=== PATIENT | male | born 1940 | race African-American/Black ===

== ENCOUNTER 2017-09-23 19:37 | Inpatient (IN) | payer OTHER, MEDICARE ==
[~2017-09-23] VITALS: Ht 175.3 cm; Wt 90.7 kg
[2017-09-23 23:01] LABS: BASOPHILS % 0.6 % (0.0-2.0); EOSINOPHILS % 0.2 % (0.0-5.0); HEMATOCRIT. 40.3 % (42.0-52.0); HEMOGLOBIN. 13.2 g/dL (14.0-18.0); LYMPHOCYTES % 16.3 % (20.0-50.0); MEAN CORPUSCULAR HEMOGLOBIN 28.6 pg (28.0-32.0); MEAN CORPUSCULAR VOLUME 87.2 fL (80.0-94.0); MEAN PLATELET VOLUME 7.7 fl (7.4-10.4); MONOCYTES % 6.1 % (2.0-8.0); NEUTROPHILS % 76.8 % (40.0-76.0); PLATELET 383 x1000/uL (130-400); RED BLOOD CELL COUNT 4.62 mill/uL (4.7-6.1); RED CELL DISTRIBUTION WIDTH 13.6 % (11.6-14.6)
[2017-09-23 23:05] LABS: INR 1.2; PROTHROMBIN TIME 12.3 sec (9.4-11.6)
[2017-09-23 23:07] LABS: CHLORIDE 107 mEq/L (98-107)
[2017-09-23 23:14] LABS: TROPONIN I < 0.02 ng/mL (0.00-0.04)
[2017-09-24 00:06] LABS: CLARITY URINE CLEAR (CLEAR); COLOR URINE YELLOW (YELLOW); KETONES URINE NEGATIVE (NEGATIVE); LEUKOCYTE ESTERASE URINE NEGATIVE (NEGATIVE); NITRITE URINE NEGATIVE (NEGATIVE); OCCULT BLOOD URINE NEGATIVE (NEGATIVE); PROTEIN URINE NEGATIVE (NEGATIVE); SPECIFIC GRAVITY URINE 1.011 (1.005-1.030); UROBILINOGEN URINE 0.2 E.U./dL (0.2-1.0)
[2017-09-24] MEDS ORDERED: CLONIDINE 0.1MG TABLET PO PRN (04:45)
[2017-09-24] MEDS ORDERED: ACETAMINOPHEN 325MG TABLET PO PRN (04:45)
[2017-09-24] MEDS ORDERED: ONDANSETRON HCL 4MG/2ML VIAL IV PRN (04:45)
[2017-09-24] MEDS ORDERED: MAGNESIUM/ALUMINUM HYDROXIDE/SIMETHICONE 30ML UDC PO PRN (04:45)
[2017-09-24] MEDS ORDERED: HYDROCODONE/ACETAMINOPHEN 5/325MG TABLET PO PRN (04:45)
[2017-09-24] MEDS ORDERED: GUAIFENESIN 200MG/10ML SUGAR FREE UDC PO PRN (04:45)
[2017-09-24 06:00] VITALS: BP 133/87
[2017-09-24 08:15] VITALS: BP 138/71
[2017-09-24] MEDS: ENOXAPARIN 40MG/0.4ML SYR SUBCUT SCH (09:00)
[2017-09-24] MEDS ORDERED: AMLODIPINE 10MG TABLET PO SCH (09:00)
[2017-09-24] MEDS ORDERED: DOCUSATE SODIUM 100MG CAPSULE PO PRN (09:00)
[2017-09-24] MEDS: ASPIRIN 81MG EC TABLET PO SCH (09:00)
[2017-09-24 09:58] VITALS: BP 132/65
[2017-09-24] MEDS ORDERED: DABI150C PO (10:25)
[2017-09-24] MEDS ORDERED: AMLO2.5T45 PO (10:28)
[2017-09-24] MEDS ORDERED: ALLO300T2 PO (10:28)
[2017-09-24] MEDS ORDERED: ARIP2TAB3 PO (10:28)
[2017-09-24] MEDS ORDERED: METO25TA6 PO (10:28)
[2017-09-24] MEDS ORDERED: FLUT9.9S NS (10:31)
[2017-09-24] MEDS ORDERED: OMEP20CA10 PO (10:31)
[2017-09-24] MEDS ORDERED: TERA5CAP4 PO (10:31)
[2017-09-24] MEDS ORDERED: MULT-1146 PO (10:31)
[2017-09-24] MEDS ORDERED: FINA5TAB11 PO (10:31)
[2017-09-24 11:56] LABS: CREATINE KINASE 70 IU/L (39-308); CREATINE KINASE MB FRACTION 1.5 ng/mL (0.5-3.6); TROPONIN I < 0.02 ng/mL (0.00-0.04)
[2017-09-24] MEDS: ALLOPURINOL 300 MG TABLET PO SCH (12:22)
[2017-09-24] MEDS: OMEPRAZOLE 20MG CAPSULE EXTENDED RELEASE PO SCH (12:22)
[2017-09-24] MEDS: FINASTERIDE 5MG TABLET PO SCH (12:23)
[2017-09-24] MEDS: TERAZOSIN HCL 5MG CAPSULE PO SCH (12:23)
[2017-09-24] MEDS: SODIUM CHLORIDE 0.9% 1,000 ML IV SCH (12:25)
[2017-09-24 12:33] VITALS: BP 126/84
[2017-09-24] MEDS: METOPROLOL TARTRATE 25MG TABLET PO SCH ×2 (13:31→21:01)
[2017-09-24] MEDS: AMLODIPINE 2.5MG TABLET PO SCH (13:32)
[2017-09-24] MEDS ORDERED: DABI75CA3 PO (13:34)
[2017-09-24 16:00] VITALS: BP 111/75
[2017-09-24 16:42] LABS: CREATINE KINASE 68 IU/L (39-308); CREATINE KINASE MB FRACTION 1.2 ng/mL (0.5-3.6); TROPONIN I < 0.02 ng/mL (0.00-0.04)
[2017-09-24 20:00] VITALS: BP 132/74
[2017-09-24] MEDS ORDERED: METOPROLOL TARTRATE 25MG TABLET PO SCH (21:00)
[2017-09-25] VITALS: BP 112/69
[2017-09-25] MEDS: SODIUM CHLORIDE 0.9% 1,000 ML IV SCH (02:21)
[2017-09-25 04:00] VITALS: BP 128/68
[2017-09-25] MEDS: OMEPRAZOLE 20MG CAPSULE EXTENDED RELEASE PO SCH (06:59)
[2017-09-25 08:00] VITALS: BP 130/84
[2017-09-25] MEDS: ENOXAPARIN 40MG/0.4ML SYR SUBCUT SCH (09:00)
[2017-09-25] MEDS: ASPIRIN 81MG EC TABLET PO SCH (09:00)
[2017-09-25] MEDS: TERAZOSIN HCL 5MG CAPSULE PO SCH (09:03)
[2017-09-25] MEDS: METOPROLOL TARTRATE 25MG TABLET PO SCH ×2 (09:04→21:28)
[2017-09-25] MEDS: AMLODIPINE 2.5MG TABLET PO SCH (09:04)
[2017-09-25] MEDS: ALLOPURINOL 300 MG TABLET PO SCH (09:05)
[2017-09-25] MEDS: FINASTERIDE 5MG TABLET PO SCH (09:05)
[2017-09-25 09:14] LABS: BASOPHILS % 0.4 % (0.0-2.0); EOSINOPHILS % 0.5 % (0.0-5.0); HEMATOCRIT. 37.7 % (42.0-52.0); HEMOGLOBIN. 12.4 g/dL (14.0-18.0); MEAN CORPUSCULAR HEMOGLOBIN 28.6 pg (28.0-32.0); MEAN CORPUSCULAR VOLUME 87.1 fL (80.0-94.0); MONOCYTES % 6.6 % (2.0-8.0); NEUTROPHILS % 69.5 % (40.0-76.0); PLATELET 371 x1000/uL (130-400); RED BLOOD CELL COUNT 4.33 mill/uL (4.7-6.1); RED CELL DISTRIBUTION WIDTH 13.9 % (11.6-14.6)
[2017-09-25 09:42] LABS: CHLORIDE 111 mEq/L (98-107); T4 FREE 1.21 ng/dL (0.76-1.46)
[2017-09-25 12:00] VITALS: BP 117/81
[2017-09-25] MEDS ORDERED: LOSARTAN POTASSIUM 25 MG TABLET PO SCH (12:15)
[2017-09-25 12:58] LABS: T4 FREE 1.21 ng/dL (0.76-1.46)
[2017-09-25 14:30] VITALS: BP_SYST 114; BP_SYST 123; BP_SYST 125; BP_DIAS 72; BP_DIAS 80; BP_DIAS 87
[2017-09-25 15:33] LABS: CREATINE KINASE 90 IU/L (39-308); CREATINE KINASE MB FRACTION 1.4 ng/mL (0.5-3.6); TROPONIN I < 0.02 ng/mL (0.00-0.04)
[2017-09-25 16:00] VITALS: BP 137/86
[2017-09-25] MEDS ORDERED: RIVAROXABAN 20 MG TABLET PO SCH (17:00)
[2017-09-25] MEDS ORDERED: NON FORMULARY PATIENT HOME MED EA XX SCH (17:15)
== END 2017-09-25 22:07 | disposition short-term general hospital (02) | DRG 312 ==
LOC: ER 19:37 → EDBEDREQTM 09-24 00:23 → EDBEDREQ 09-24 00:23 → EDBEDREQDT 09-24 00:23 → 5WST 09-24 01:15 → EDBEDREQ 09-24 01:19 → EDBEDREQTM 09-24 01:19 → ENRESERV 09-24 04:19 → SUPCPDRO 09-24 04:41
PROVIDERS: ADMIT Hospitalist; ATTEND Hospitalist
DX: R55 Syncope and collapse (principal); J44.9 Chronic obstructive pulmonary disease, unspecified; I48.91 Unspecified atrial fibrillation; W00.0XXA Fall on same level due to ice and snow, initial encounter; E78.00 Pure hypercholesterolemia, unspecified; E78.5 Hyperlipidemia, unspecified; I10 Essential (primary) hypertension; I25.10 Atherosclerotic heart disease of native coronary artery without angina pectoris; Z79.01 Long term (current) use of anticoagulants; Z86.73 Personal history of transient ischemic attack (TIA), and cerebral infarction without residual deficits; Z95.5 Presence of coronary angioplasty implant and graft; Z87.891 Personal history of nicotine dependence; Y93.89 Activity, other specified; Y92.89 Other specified places as the place of occurrence of the external cause; Y99.8 Other external cause status
CPT/HCPCS: 36415; 70450; 71045; 80053; 80061; 81003; 82550; 82553; 83036; 83735; 83880; 84439; 84443; 84484; 85025; 85610; 93005; 93306; 93880; 99285; J7030

== ENCOUNTER 2018-06-09 23:41 | Inpatient (IN) | payer MEDICARE, OTHER ==
[~2018-06-09] VITALS: Ht 185.4 cm; Wt 85.7 kg
[~2018-06-09 23:41] MED LIST: ALLO300T2 PO; AMLO2.5T45 PO; DABI75CA3 PO; FINA5TAB11 PO; FLUT9.9S NS; METO25TA6 PO; MULT-1146 PO; OMEP20CA10 PO; TERA5CAP4 PO
[2018-06-09] MEDS ORDERED: LEVETIRACETAM 500MG PREMIX 100 ML IV ONE (23:45)
[2018-06-09] MEDS ORDERED: LORAZEPAM 2MG/ML CPJ IV ONE (23:45)
[2018-06-09] MEDS ORDERED: LORAZEPAM 2MG/ML CPJ ONE (23:58)
[2018-06-10] VITALS (51 sets, daily range): BP systolic 107–185; BP diastolic 48–96
[2018-06-10] MEDS ORDERED: LORAZEPAM 2MG/ML CPJ ONE
[2018-06-10] MEDS ORDERED: PROPOFOL 10MG/ML 100ML 100 ML IV ONE
[2018-06-10] MEDS ORDERED: LORAZEPAM 2MG/ML CPJ IV ONE ×2
[2018-06-10 00:02] LABS: BASOPHILS % 1.1 % (0.0-2.0); EOSINOPHILS % 2.2 % (0.0-5.0); HEMATOCRIT. 42.1 % (42.0-52.0); HEMOGLOBIN. 13.2 g/dL (14.0-18.0); MEAN CORPUSCULAR HEMOGLOBIN 27.5 pg (28.0-32.0); MEAN CORPUSCULAR VOLUME 87.7 fL (80.0-94.0); MEAN PLATELET VOLUME 9.8 fl (7.4-10.4); MONOCYTES % 7.9 % (2.0-8.0); NEUTROPHILS % 26.8 % (40.0-76.0); PLATELET 251 x1000/uL (130-400)
[2018-06-10 00:10] LABS: INR 1.2; PROTHROMBIN TIME 11.6 sec (9.1-11.1)
[2018-06-10 00:15] LABS: CHLORIDE 108 mEq/L (98-107)
[2018-06-10] MEDS ORDERED: PIPERACILLIN/TAZ 3.375G PREMIX 50 ML IV ONE (00:45)
[2018-06-10] MEDS ORDERED: VANCOMYCIN 1 G PREMIX 200 ML IV ONE (00:45)
[2018-06-10 01:05] LABS: BG BASE EXCESS -13.8 mmol/L (-2.0-2.0); BG CARBOXYHEMOGLOBIN 0.5 % (0.5-1.5); BG FRACTION INSPIRED OXYGEN 100; BG HCO3 ACT 13.6 mmol/L (22.0-26.0); BG METHEMOGLOBIN 0.5 % (0.0-1.5); BG PH 7.184 (7.350-7.450); BG PO2 109.5 mmHg (75.0-100.0); BG SAMPLE SITE RIGHT BRACHIAL; BG TIDAL VOLUME(mL) 500 mL; BG TOTAL HEMOGLOBIN 13.4 g/dL (12.0-18.0); BG VENT MODE VENT - A/C; BG VENT RATE 14 set
[2018-06-10 01:17] LABS: CLARITY URINE CLEAR (CLEAR); COLOR URINE YELLOW (YELLOW); KETONES URINE NEGATIVE (NEGATIVE); LEUKOCYTE ESTERASE URINE NEGATIVE (NEGATIVE); NITRITE URINE NEGATIVE (NEGATIVE); OCCULT BLOOD URINE TRACE (NEGATIVE); PROTEIN URINE 1+ (NEGATIVE); SPECIFIC GRAVITY URINE 1.012 (1.005-1.030)
[2018-06-10] MEDS ORDERED: SODIUM BICARBONATE 8.4% 1 MEQ/ML 50ML SYR IV NR (01:38)
[2018-06-10] MEDS ORDERED: SODIUM CHLORIDE 0.9% 1,000 ML IV SCH (02:20)
[2018-06-10] MEDS ORDERED: LORAZEPAM 2MG/ML CPJ IV PRN (05:30)
[2018-06-10] MEDS ORDERED: PIPERACILLIN/TAZ 3.375G PREMIX 50 ML IV SCH (05:30)
[2018-06-10] MEDS ORDERED: ONDANSETRON HCL 4MG/2ML INJ IV PRN (05:30)
[2018-06-10 06:18] LABS: BG BASE EXCESS -1.6 mmol/L (-2.0-2.0); BG CARBOXYHEMOGLOBIN 0.7 % (0.5-1.5); BG DEOXYHEMOGLOBIN 1.9 % (0.0-5.0); BG FRACTION INSPIRED OXYGEN 80; BG HCO3 ACT 22.5 mmol/L (22.0-26.0); BG METHEMOGLOBIN 0.4 % (0.0-1.5); BG OXYGEN SATURATION 98.1 % (92.0-98.5); BG PCO2 36.2 mmHg (35.0-45.0); BG PH 7.412 (7.350-7.450); BG PO2 106.6 mmHg (75.0-100.0); BG SAMPLE SITE RIGHT BRACHIAL; BG TIDAL VOLUME(mL) 500 mL; BG TOTAL HEMOGLOBIN 13.1 g/dL (12.0-18.0); BG VENT MODE VENT - A/C; BG VENT RATE 14 set
[2018-06-10] MEDS ORDERED: HYDRALAZINE 20MG/ML VIAL IV PRN (06:30)
[2018-06-10] MEDS: DEXT 5%/0.45% NACL KCL 20MEQ/L 1,000 ML IV SCH ×2 (07:17→18:45)
[2018-06-10] MEDS: PROPOFOL 10MG/ML 100ML 100 ML IV PRN ×2 (07:18→11:44)
[2018-06-10] MEDS ORDERED: PHENYTOIN SODIUM 1000MG in SODIUM CHLORIDE 0.9% 100ML IV NR (08:00)
[2018-06-10] MEDS: LEVETIRACETAM 1,000 MG in SODIUM CHLORIDE 0.9% 100 ML IV SCH ×2 (09:47→21:08)
[2018-06-10] MEDS: PANTOPRAZOLE SODIUM 40 MG/VIAL IV SCH (09:47)
[2018-06-10] MEDS ORDERED: IPRATROPIUM/ALBUTEROL 0.5-3(2.5)MG/3ML NEB HHN PRN (10:30)
[2018-06-10] MEDS ORDERED: CLONIDINE 0.1MG TABLET PO PRN (10:30)
[2018-06-10] MEDS ORDERED: LOSARTAN POTASSIUM 50 MG TABLET PO SCH (10:30)
[2018-06-10] MEDS: PIPERACILLIN/TAZ 3.375G PREMIX 50 ML IV SCH ×3 (10:31→21:08)
[2018-06-10] MEDS ORDERED: ENOXAPARIN 40MG/0.4ML SYR SUBCUT SCH (11:30)
[2018-06-10] MEDS: FUROSEMIDE 40MG/4ML VIAL IVP SCH ×2 (11:32→17:00)
[2018-06-10] MEDS: AMLODIPINE 5MG TABLET PO SCH ×2 (11:32→21:09)
[2018-06-10 11:44] LABS: BASOPHILS % 0.2 % (0.0-2.0); EOSINOPHILS % 0.1 % (0.0-5.0); HEMATOCRIT. 37.1 % (42.0-52.0); HEMOGLOBIN. 11.8 g/dL (14.0-18.0); LYMPHOCYTES % 15.4 % (20.0-50.0); MEAN CORPUSCULAR HEMOGLOBIN 27.6 pg (28.0-32.0); MEAN CORPUSCULAR VOLUME 86.4 fL (80.0-94.0); MEAN PLATELET VOLUME 9.8 fl (7.4-10.4); MONOCYTES % 7.2 % (2.0-8.0); NEUTROPHILS % 77.1 % (40.0-76.0); PLATELET 232 x1000/uL (130-400); RED CELL DISTRIBUTION WIDTH 13.4 % (11.6-14.6)
[2018-06-10 11:56] LABS: AMMONIA 42 uMol/L (<32)
[2018-06-10] MEDS ORDERED: IPRATROPIUM/ALBUTEROL 0.5-3(2.5)MG/3ML NEB HHN SCH (12:00)
[2018-06-10 12:14] LABS: CHLORIDE 108 mEq/L (98-107)
[2018-06-10] MEDS: VANCOMYCIN 1250MG in DEXTROSE 5% WATER 250ML IV SCH (12:41)
[2018-06-10] MEDS ORDERED: POTASSIUM CHLORIDE 20MEQ/PACKET PO NR (13:00)
[2018-06-10] MEDS ORDERED: PROPOFOL 10MG/ML 100ML 100 ML IV PRN (13:10)
[2018-06-10] MEDS ORDERED: LACTULOSE 20G/30ML UDC PO NR (13:15)
[2018-06-10] MEDS ORDERED: SODIUM CHLORIDE 0.9% 10ML VIAL ONE (13:54)
[2018-06-10] MEDS ORDERED: VECURONIUM BROMIDE 10 MG/VIAL IV ONE ×2 (13:54)
[2018-06-10] MEDS ORDERED: FOLIC ACID 1 MG in SODIUM CHLORIDE 0.9% 500 ML IV NR (15:00)
[2018-06-10] MEDS ORDERED: DEXTROSE 50% WATER 50ML SYRINGE IV PRN (15:15)
[2018-06-10] MEDS ORDERED: BISO10TA11 MT (16:44)
[2018-06-10] MEDS ORDERED: LIP40 MT (16:44)
[2018-06-10] MEDS ORDERED: ASPI-1159 MT (16:44)
[2018-06-10 17:12] LABS: PHOSPHORUS 2.9 mg/dL (2.5-4.9)
[2018-06-10] MEDS ORDERED: BLOOD SUGAR DIAGNOSTIC STRIP TEST SCH (17:50)
[2018-06-10] MEDS ORDERED: INSULIN LISPRO 100 UNITS/ML SUBCUT SCH (18:20)
[2018-06-10] MEDS: IPRATROPIUM/ALBUTEROL 0.5-3(2.5)MG/3ML NEB HHN SCH (20:16)
[2018-06-10] MEDS: BUDESONIDE 0.5MG/2ML NEB HHN SCH (20:16)
[2018-06-10] MEDS ORDERED: PHENYTOIN SODIUM EXTENDED 100MG CAPSULE PO SCH (21:00)
[2018-06-10] MEDS: ENOXAPARIN 100MG/ML SYR SUBCUT SCH (21:10)
[2018-06-10] MEDS: INSULIN LISPRO 100 UNITS/ML SUBCUT SCH (23:15)
[2018-06-10] MEDS: BLOOD SUGAR DIAGNOSTIC STRIP TEST SCH (23:17)
[2018-06-10 23:33] LABS: CREATINE KINASE MB FRACTION 3.1 ng/mL (0.5-3.6)
[2018-06-11] VITALS (62 sets, daily range): BP systolic 102–171; BP diastolic 49–111
[2018-06-11] MEDS: IPRATROPIUM/ALBUTEROL 0.5-3(2.5)MG/3ML NEB HHN SCH ×3 (01:20→15:18)
[2018-06-11] MEDS: PIPERACILLIN/TAZ 3.375G PREMIX 50 ML IV SCH ×3 (02:23→14:15)
[2018-06-11] MEDS: DEXT 5%/0.45% NACL KCL 20MEQ/L 1,000 ML IV SCH (04:50)
[2018-06-11] MEDS: VANCOMYCIN 1250MG in DEXTROSE 5% WATER 250ML IV SCH (05:01)
[2018-06-11 05:13] LABS: BASOPHILS % 0.3 % (0.0-2.0); EOSINOPHILS % 0.3 % (0.0-5.0); HEMATOCRIT. 39.1 % (42.0-52.0); HEMOGLOBIN. 12.7 g/dL (14.0-18.0); MEAN CORPUSCULAR HEMOGLOBIN 27.8 pg (28.0-32.0); MEAN CORPUSCULAR VOLUME 85.7 fL (80.0-94.0); MONOCYTES % 9.6 % (2.0-8.0); NEUTROPHILS % 65.8 % (40.0-76.0); PLATELET 226 x1000/uL (130-400); RED BLOOD CELL COUNT 4.56 mill/uL (4.7-6.1); RED CELL DISTRIBUTION WIDTH 13.6 % (11.6-14.6)
[2018-06-11 05:18] LABS: CHLORIDE 107 mEq/L (98-107)
[2018-06-11] MEDS: INSULIN LISPRO 100 UNITS/ML SUBCUT SCH ×3 (05:19→17:26)
[2018-06-11] MEDS: BLOOD SUGAR DIAGNOSTIC STRIP TEST SCH ×3 (05:19→17:26)
[2018-06-11 05:26] LABS: AMMONIA 54 uMol/L (<32)
[2018-06-11 05:27] LABS: CREATINE KINASE 972 IU/L (39-308); CREATINE KINASE MB FRACTION 1.9 ng/mL (0.5-3.6)
[2018-06-11 07:36] LABS: BG BASE EXCESS -0.2 mmol/L (-2.0-2.0); BG CARBOXYHEMOGLOBIN 0.6 % (0.5-1.5); BG DEOXYHEMOGLOBIN 0.7 % (0.0-5.0); BG HCO3 ACT 22.4 mmol/L (22.0-26.0); BG METHEMOGLOBIN 0.3 % (0.0-1.5); BG OXYGEN SATURATION 99.3 % (92.0-98.5); BG OXYHEMOGLOBIN 98.4 % (94.0-97.0); BG PCO2 30.8 mmHg (35.0-45.0); BG PO2 162.5 mmHg (75.0-100.0); BG SAMPLE SITE RIGHT BRACHIAL; BG TIDAL VOLUME(mL) 500 mL; BG TOTAL HEMOGLOBIN 13.2 g/dL (12.0-18.0); BG VENT MODE VENT - A/C; BG VENT RATE 14 set
[2018-06-11] MEDS ORDERED: LIDOCAINE HCL 1% 20ML VIAL (Pyxis) INJ ONE (07:56)
[2018-06-11] MEDS ORDERED: SODIUM BICARBONATE 4% (2.4MEQ) 5ML VIAL IV ONE (07:56)
[2018-06-11] MEDS: BUDESONIDE 0.5MG/2ML NEB HHN SCH (08:37)
[2018-06-11] MEDS ORDERED: THIAMINE HCL 100MG TABLET PO SCH (09:00)
[2018-06-11] MEDS ORDERED: MULTIVITAMINS,THER W-MINERALS TABLET PO SCH (09:00)
[2018-06-11] MEDS ORDERED: CARVEDILOL 3.125 MG TABLET PO SCH (09:00)
[2018-06-11] MEDS ORDERED: POTASSIUM CHLORIDE 20MEQ TABLET SR PO SCH (10:00)
[2018-06-11] MEDS ORDERED: LACTULOSE 20G/30ML UDC PO PRN (10:00)
[2018-06-11] MEDS: FUROSEMIDE 40MG/4ML VIAL IVP SCH ×2 (10:03→17:26)
[2018-06-11] MEDS: LEVETIRACETAM 1,000 MG in SODIUM CHLORIDE 0.9% 100 ML IV SCH (10:03)
[2018-06-11] MEDS: PANTOPRAZOLE SODIUM 40 MG/VIAL IV SCH (10:03)
[2018-06-11] MEDS: ENOXAPARIN 100MG/ML SYR SUBCUT SCH (10:04)
[2018-06-11] MEDS: AMLODIPINE 5MG TABLET PO SCH (10:09)
[2018-06-11] MEDS ORDERED: POTASSIUM CHLORIDE 20MEQ/PACKET PO NR (10:30)
[2018-06-11] MEDS: PROPOFOL 10MG/ML 100ML 100 ML IV PRN ×2 (10:40→18:40)
[2018-06-11] MEDS ORDERED: LACTULOSE 20G/30ML UDC PO SCH (14:00)
[2018-06-11 18:06] LABS: PHOSPHORUS 4.3 mg/dL (2.5-4.9)
== END 2018-06-11 20:55 | disposition short-term general hospital (02) | DRG 871 ==
LOC: ER 23:41 → EDBD 06-10 02:21 → CVICU 06-10 02:21 → EDBEDREQSVC 06-10 02:25 → EDBEDREQ 06-10 02:25 → EDBEDREQTM 06-10 02:25 → ENRESERV 06-10 03:27
PROVIDERS: ADMIT Internal Medicine; ATTEND Internal Medicine
PROC: 0BH17EZ Insertion of Endotracheal Airway into Trachea, Via Natural or Artificial Opening (ICD-10-PCS; principal; 2018-06-10)
PROC: 0CJS8ZZ Inspection of Larynx, Via Natural or Artificial Opening Endoscopic (ICD-10-PCS; 2018-06-10)
PROC: 5A1945Z Respiratory Ventilation, 24-96 Consecutive Hours (ICD-10-PCS; 2018-06-10)
PROC: 02HV33Z Insertion of Infusion Device into Superior Vena Cava, Percutaneous Approach (ICD-10-PCS; 2018-06-11)
PROC: B548ZZA Ultrasonography of Superior Vena Cava, Guidance (ICD-10-PCS; 2018-06-11)
DX: A41.9 Sepsis, unspecified organism (principal); G93.41 Metabolic encephalopathy; J96.00 Acute respiratory failure, unspecified whether with hypoxia or hypercapnia; I50.23 Acute on chronic systolic (congestive) heart failure; I42.9 Cardiomyopathy, unspecified; I69.351 Hemiplegia and hemiparesis following cerebral infarction affecting right dominant side; E78.00 Pure hypercholesterolemia, unspecified; E87.8 Other disorders of electrolyte and fluid balance, not elsewhere classified; G40.909 Epilepsy, unspecified, not intractable, without status epilepticus; E78.5 Hyperlipidemia, unspecified; E11.9 Type 2 diabetes mellitus without complications; E87.6 Hypokalemia; G47.33 Obstructive sleep apnea (adult) (pediatric); I11.0 Hypertensive heart disease with heart failure; I25.10 Atherosclerotic heart disease of native coronary artery without angina pectoris; I48.2 Chronic atrial fibrillation; J44.9 Chronic obstructive pulmonary disease, unspecified; N40.0 Benign prostatic hyperplasia without lower urinary tract symptoms; Z78.1 Physical restraint status; Z95.5 Presence of coronary angioplasty implant and graft; Z79.82 Long term (current) use of aspirin; Z79.899 Other long term (current) drug therapy
CPT/HCPCS: 31500; 36415; 36569; 36600; 43760; 51702; 70551; 71045; 74018; 76937; 80048; 80061; 80185; 82140; 82375; 82550; 82553; 82805; 82962; 83605; 83721; 83735; 83880; 84100; 84443; 84478; 84484; 87070; 87804; 93005; 93306; 93970; 94002; 94003; 94640; 96365; 96375; 99291; A4216; C1725; C1769; C9113; J0360; J1165; J1650; J1815; J1940; J1953; J2060; J2543; J2704; J3370; J3490; J7030; J7040; J7050; J7060; J7620; J7626

== ENCOUNTER 2020-02-24 01:19 | Inpatient (IN) | payer MEDICARE, OTHER ==
[~2020-02-24] VITALS: Ht 175.3 cm; Wt 113.4 kg
[2020-02-24] VITALS (28 sets, daily range): BP systolic 80–122; BP diastolic 35–62
[~2020-02-24 01:19] MED LIST changes: -AMLO2.5T45 PO; +ASPI-1497 MT; +BISO10TA11 MT; +LIP40 MT; -MULT-1146 PO; -OMEP20CA10 PO; +OMEP20CA14 PO
[2020-02-24] MEDS ORDERED: NITROGLYCERIN 0.1MG/HR PATCH TOP ONE (01:30)
[2020-02-24] MEDS ORDERED: SODIUM CHLORIDE 0.45% 1,000 ML IV ONE (01:59)
[2020-02-24 02:00] LABS: CHLORIDE 90 mEq/L (98-107)
[2020-02-24] MEDS ORDERED: MAGNESIUM 2 G PREMIX 50 ML IV ONE (02:00)
[2020-02-24] MEDS ORDERED: AZITHROMYCIN 500 MG in DEXT 5% WATER 250 ML IV ONE (02:00)
[2020-02-24] MEDS ORDERED: CEFTRIAXONE 1 G PREMIX 50 ML IV ONE (02:00)
[2020-02-24 02:04] LABS: BG BASE EXCESS 5.9 mmol/L (-2.0-2.0); BG CARBOXYHEMOGLOBIN 0.8 % (0.5-1.5); BG DEOXYHEMOGLOBIN 1.3 % (0.0-5.0); BG FRACTION INSPIRED OXYGEN 100; BG HCO3 ACT 29.5 mmol/L (22.0-26.0); BG METHEMOGLOBIN 0.2 % (0.0-1.5); BG OXYGEN SATURATION 98.7 % (92.0-98.5); BG OXYHEMOGLOBIN 97.7 % (94.0-97.0); BG PCO2 39.1 mmHg (35.0-45.0); BG PH 7.495 (7.350-7.450); BG PO2 131.4 mmHg (75.0-100.0); BG SAMPLE SITE RIGHT RADIAL; BG TOTAL HEMOGLOBIN 15.4 g/dL (12.0-18.0); BG VENT MODE MASK - NRB
[2020-02-24 02:16] LABS: BASOPHILS % 0.1 % (0.0-2.0); EOSINOPHILS % 0.1 % (0.0-5.0); HEMOGLOBIN. 15.2 g/dL (14.0-18.0); LYMPHOCYTES % 17.5 % (20.0-50.0); MEAN CORPUSCULAR HEMOGLOBIN 28.9 pg (28.0-32.0); MEAN CORPUSCULAR VOLUME 87.5 fL (80.0-94.0); MONOCYTES % 10.2 % (2.0-8.0); NEUTROPHILS % 72.1 % (40.0-76.0); PLATELET 259 x1000/uL (130-400); RED BLOOD CELL COUNT 5.27 mill/uL (4.7-6.1); RED CELL DISTRIBUTION WIDTH 13.5 % (11.6-14.6)
[2020-02-24] MEDS ORDERED: IPRATROPIUM BROMIDE (0.02%) 0.5MG/2.5ML NEB HHN STA (05:53)
[2020-02-24] MEDS ORDERED: ALBUTEROL (0.083%) 2.5MG/3ML NEB HHN STA ×2 (05:53→07:34)
[2020-02-24] MEDS ORDERED: MAGNESIUM/ALUMINUM HYDROXIDE/SIMETHICONE 30ML UDC PO PRN (06:30)
[2020-02-24] MEDS ORDERED: NITROGLYCERIN 0.4MG TABLET SL SL PRN (06:30)
[2020-02-24] MEDS ORDERED: ACETAMINOPHEN 325MG TABLET PO PRN (06:30)
[2020-02-24 06:47] LABS: T4 FREE 1.2 ng/dL (0.76-1.46)
[2020-02-24 06:59] LABS: FOLIC ACID (FOLATE) SERUM >20 ng/mL ng/mL (>5.38)
[2020-02-24] MEDS ORDERED: KCL 20MEQ/100ML PREMIX 100 ML IV SCH (07:00)
[2020-02-24] MEDS ORDERED: AZITHROMYCIN 500 MG in DEXT 5% WATER 250 ML IV SCH (07:00)
[2020-02-24 07:10] LABS: VITAMIN B12 SERUM 669 pg/mL (211-911)
[2020-02-24] MEDS ORDERED: SODIUM CHLORIDE 0.9% 1,000 ML IV ONE ×2 (07:34→11:15)
[2020-02-24] MEDS ORDERED: FUROSEMIDE 20MG/2ML VIAL IV SCH (08:00)
[2020-02-24] MEDS ORDERED: CEFTRIAXONE 1 G PREMIX 50 ML IV SCH (08:00)
[2020-02-24] MEDS: APIXABAN 5 MG TABLET PO SCH ×2 (08:30→20:48)
[2020-02-24] MEDS: SPIRONOLACTONE 25MG TABLET PO SCH ×2 (08:31→20:48)
[2020-02-24 08:58] LABS: D-DIMER 1.41 mg/L FEU (<0.50); INR 1.2; PROTHROMBIN TIME 12.4 sec (9.6-11.0)
[2020-02-24] MEDS: CLONIDINE 0.1MG TABLET PO PRN (09:00)
[2020-02-24] MEDS: ASCORBIC ACID 500 MG TABLET PO SCH ×2 (09:00→20:48)
[2020-02-24] MEDS ORDERED: FUROSEMIDE 40MG/4ML VIAL IVP SCH (09:00)
[2020-02-24] MEDS: GUAIFENESIN/DM 600MG/30MG ER TAB 12HR PO SCH ×2 (09:00→20:48)
[2020-02-24] MEDS: ZINC SULFATE 220 MG ( 50 ) CAPSULE PO SCH (09:00)
[2020-02-24] MEDS: FAMOTIDINE 20MG TABLET PO SCH ×2 (09:00→20:48)
[2020-02-24] MEDS ORDERED: MIDAZOLAM HCL 2 MG/2 ML VIAL IV ONE (10:30)
[2020-02-24] MEDS ORDERED: SUCCINYLCHOLINE CHLORIDE 200MG/10ML IV ONE (10:30)
[2020-02-24] MEDS ORDERED: ETOMIDATE 2MG/ML 10ML VIAL IV ONE (10:30)
[2020-02-24] MEDS ORDERED: MIDAZOLAM HCL 50 MG in DEXTROSE 5% WATER 40 ML IV ONE ×3 (10:30→14:30)
[2020-02-24] MEDS ORDERED: PROPOFOL 10MG/ML 100ML 100 ML IV PRN (11:45)
[2020-02-24] MEDS ORDERED: FENTANYL CITRATE/PF 1,000 MCG in SODIUM CHLORIDE 0.9% 80 ML IV PRN (11:45)
[2020-02-24 12:31] LABS: BG BASE EXCESS -2.9 mmol/L (-2.0-2.0); BG CARBOXYHEMOGLOBIN 0.3 % (0.5-1.5); BG FRACTION INSPIRED OXYGEN 100; BG HCO3 ACT 23.3 mmol/L (22.0-26.0); BG METHEMOGLOBIN 0.4 % (0.0-1.5); BG OXYGEN SATURATION 88.9 % (92.0-98.5); BG OXYHEMOGLOBIN 88.3 % (94.0-97.0); BG PCO2 45.5 mmHg (35.0-45.0); BG PH 7.327 (7.350-7.450); BG PO2 61.3 mmHg (75.0-100.0); BG SAMPLE SITE RIGHT BRACHIAL; BG TIDAL VOLUME(mL) 550 mL; BG TOTAL HEMOGLOBIN 14.4 g/dL (12.0-18.0); BG VENT MODE VENT - A/C; BG VENT RATE 18 set
[2020-02-24] MEDS ORDERED: LIDOCAINE HCL 1% 20ML VIAL (Pyxis) INJ ONE (13:27)
[2020-02-24 14:43] LABS: CREATINE KINASE MB FRACTION 5.9 ng/mL (0.5-3.6)
[2020-02-24] MEDS: NOREPINEPHRINE 16 MG in DEXT 5% WATER 234 ML IV PRN (17:45)
[2020-02-24] MEDS ORDERED: SODIUM CHLORIDE 0.9% 500 ML IV ONE (19:45)
[2020-02-25] VITALS (70 sets, daily range): BP systolic 72–171; BP diastolic 28–74
[2020-02-25 00:43] LABS: CREATINE KINASE MB FRACTION 3.4 ng/mL (0.5-3.6)
[2020-02-25] MEDS: PHENYLEPHRINE 40 MG in DEXT 5% WATER 246 ML IV PRN ×3 (01:01→11:13)
[2020-02-25] MEDS: NOREPINEPHRINE 16 MG in DEXT 5% WATER 234 ML IV PRN ×3 (02:15→21:52)
[2020-02-25 05:35] LABS: BASOPHILS % 0.1 % (0.0-2.0); HEMATOCRIT. 38.6 % (42.0-52.0); HEMOGLOBIN. 12.8 g/dL (14.0-18.0); LYMPHOCYTES % 18.8 % (20.0-50.0); MEAN CORPUSCULAR HEMOGLOBIN 29.4 pg (28.0-32.0); MEAN CORPUSCULAR VOLUME 88.4 fL (80.0-94.0); MEAN PLATELET VOLUME 10.3 fl (7.4-10.4); MONOCYTES % 5.1 % (2.0-8.0); PLATELET 193 x1000/uL (130-400); RED BLOOD CELL COUNT 4.37 mill/uL (4.7-6.1); RED CELL DISTRIBUTION WIDTH 13.8 % (11.6-14.6)
[2020-02-25 05:43] LABS: CHLORIDE 94 mEq/L (98-107)
[2020-02-25 05:53] LABS: PHOSPHORUS 3.4 mg/dL (2.5-4.9)
[2020-02-25] MEDS: AZITHROMYCIN 500 MG in DEXT 5% WATER 250 ML IV SCH (06:29)
[2020-02-25 07:45] LABS: BG BASE EXCESS -0.1 mmol/L (-2.0-2.0); BG CARBOXYHEMOGLOBIN 0.3 % (0.5-1.5); BG DEOXYHEMOGLOBIN 14.2 % (0.0-5.0); BG HCO3 ACT 22.6 mmol/L (22.0-26.0); BG METHEMOGLOBIN 0.2 % (0.0-1.5); BG OXYGEN SATURATION 85.7 % (92.0-98.5); BG OXYHEMOGLOBIN 85.3 % (94.0-97.0); BG PCO2 31.4 mmHg (35.0-45.0); BG PH 7.476 (7.350-7.450); BG PO2 49.3 mmHg (75.0-100.0); BG SAMPLE SITE RIGHT BRACHIAL; BG TIDAL VOLUME(mL) 550 mL; BG TOTAL HEMOGLOBIN 13.4 g/dL (12.0-18.0); BG VENT MODE VENT - A/C; BG VENT RATE 18 set
[2020-02-25] MEDS: ASCORBIC ACID 500 MG TABLET PO SCH ×2 (08:47→21:44)
[2020-02-25] MEDS: ZINC SULFATE 220 MG ( 50 ) CAPSULE PO SCH (08:47)
[2020-02-25] MEDS: APIXABAN 5 MG TABLET PO SCH (08:47)
[2020-02-25] MEDS: SPIRONOLACTONE 25MG TABLET PO SCH ×2 (08:47→21:44)
[2020-02-25] MEDS: FAMOTIDINE 20MG TABLET PO SCH (08:47)
[2020-02-25] MEDS: CEFTRIAXONE 1 G PREMIX 50 ML IV SCH (08:48)
[2020-02-25] MEDS: GUAIFENESIN/DM 600MG/30MG ER TAB 12HR PO SCH (09:00)
[2020-02-25] MEDS ORDERED: DEXAMETHASONE 10 MG/ML VIAL IV SCH (09:00)
[2020-02-25] MEDS: IPRATROPIUM/ALBUTEROL 0.5-3(2.5)MG/3ML NEB ORI PRN ×3 (09:30→16:08)
[2020-02-25] MEDS: ACETAMINOPHEN 325MG TABLET PO PRN ×3 (09:37→21:45)
[2020-02-25 10:47] LABS: BG BASE EXCESS 2.3 mmol/L (-2.0-2.0); BG CARBOXYHEMOGLOBIN 0.3 % (0.5-1.5); BG HCO3 ACT 25.3 mmol/L (22.0-26.0); BG METHEMOGLOBIN 0.3 % (0.0-1.5); BG OXYGEN SATURATION 88.9 % (92.0-98.5); BG OXYHEMOGLOBIN 88.4 % (94.0-97.0); BG PCO2 34.1 mmHg (35.0-45.0); BG PH 7.488 (7.350-7.450); BG PO2 54.5 mmHg (75.0-100.0); BG SAMPLE SITE RIGHT BRACHIAL; BG TIDAL VOLUME(mL) 550 mL; BG TOTAL HEMOGLOBIN 13.5 g/dL (12.0-18.0); BG VENT MODE VENT - A/C; BG VENT RATE 18 set
[2020-02-25] MEDS ORDERED: PANTOPRAZOLE 80 MG in SODIUM CHLORIDE 0.9% 100 ML IV SCH (12:00)
[2020-02-25] MEDS: DEXT 5%/0.9% NACL KCL 20MEQ/L 1,000 ML IV SCH (13:36)
[2020-02-25] MEDS ORDERED: FUROSEMIDE 40MG/4ML VIAL IVP SCH (14:15)
[2020-02-25 14:26] LABS: BG BASE EXCESS 1.1 mmol/L (-2.0-2.0); BG DEOXYHEMOGLOBIN 7.8 % (0.0-5.0); BG FRACTION INSPIRED OXYGEN 100; BG HCO3 ACT 23.9 mmol/L (22.0-26.0); BG METHEMOGLOBIN 0.3 % (0.0-1.5); BG OXYGEN SATURATION 92.2 % (92.0-98.5); BG OXYHEMOGLOBIN 91.9 % (94.0-97.0); BG PCO2 32.5 mmHg (35.0-45.0); BG PH 7.485 (7.350-7.450); BG PO2 63.4 mmHg (75.0-100.0); BG SAMPLE SITE RIGHT RADIAL; BG TIDAL VOLUME(mL) 550 mL; BG TOTAL HEMOGLOBIN 13.2 g/dL (12.0-18.0); BG VENT MODE VENT - A/C; BG VENT RATE 18 set
[2020-02-25] MEDS: PROPOFOL 10MG/ML 100ML 100 ML IV PRN (19:02)
[2020-02-25] MEDS ORDERED: APIXABAN 5 MG TABLET PO SCH (21:00)
[2020-02-25] MEDS ORDERED: FAMOTIDINE 20MG TABLET PO SCH (21:00)
[2020-02-25] MEDS: APIXABAN 2.5 MG TABLET PO SCH (21:42)
[2020-02-25] MEDS: ONDANSETRON HCL 4MG/2ML INJ IV PRN (21:44)
[2020-02-25] MEDS: GUAIFENESIN 200MG/10ML SUGAR FREE UDC PO PRN (21:45)
[2020-02-25] MEDS: ZOLPIDEM TARTRATE 5MG TABLET PO PRN (21:45)
[2020-02-26] VITALS (63 sets, daily range): BP systolic 100–147; BP diastolic 43–77
[2020-02-26] MEDS: IPRATROPIUM/ALBUTEROL 0.5-3(2.5)MG/3ML NEB ORI PRN ×2 (03:44→08:46)
[2020-02-26] MEDS: AZITHROMYCIN 500 MG in DEXT 5% WATER 250 ML IV SCH (06:00)
[2020-02-26 06:01] LABS: HEPATITIS B SURFACE ANTIGEN NEGATIVE
[2020-02-26 06:31] LABS: HEPATITIS A AB IGM NEGATIVE (NEGATIVE)
[2020-02-26] MEDS: ASCORBIC ACID 500 MG TABLET PO SCH ×2 (08:39→21:00)
[2020-02-26] MEDS: APIXABAN 2.5 MG TABLET PO SCH ×2 (08:39→21:00)
[2020-02-26] MEDS: SPIRONOLACTONE 25MG TABLET PO SCH ×2 (08:39→21:00)
[2020-02-26] MEDS: ZINC SULFATE 220 MG ( 50 ) CAPSULE PO SCH (08:40)
[2020-02-26] MEDS: NOREPINEPHRINE 16 MG in DEXT 5% WATER 234 ML IV PRN (08:40)
[2020-02-26] MEDS: CEFTRIAXONE 1 G PREMIX 50 ML IV SCH (08:40)
[2020-02-26 09:09] LABS: BG CARBOXYHEMOGLOBIN 0.3 % (0.5-1.5); BG DEOXYHEMOGLOBIN 4.9 % (0.0-5.0); BG FRACTION INSPIRED OXYGEN 100; BG HCO3 ACT 24.2 mmol/L (22.0-26.0); BG METHEMOGLOBIN 0.1 % (0.0-1.5); BG OXYGEN SATURATION 95.1 % (92.0-98.5); BG OXYHEMOGLOBIN 94.7 % (94.0-97.0); BG PCO2 37.7 mmHg (35.0-45.0); BG PH 7.425 (7.350-7.450); BG PO2 74.3 mmHg (75.0-100.0); BG SAMPLE SITE RIGHT RADIAL; BG TIDAL VOLUME(mL) 550 mL; BG TOTAL HEMOGLOBIN 12.3 g/dL (12.0-18.0); BG VENT MODE VENT - A/C; BG VENT RATE 18 set
[2020-02-26] MEDS: DEXT 5%/0.9% NACL KCL 20MEQ/L 1,000 ML IV SCH ×2 (09:29→18:03)
[2020-02-26] MEDS: PROPOFOL 10MG/ML 100ML 100 ML IV PRN (09:35)
[2020-02-26] MEDS ORDERED: CALCIUM GLUCONATE 100MG/ML 10ML VIAL IV ONE (09:45)
[2020-02-26] MEDS: PANTOPRAZOLE SODIUM 40 MG/VIAL IV SCH ×2 (11:21→21:00)
[2020-02-26] MEDS ORDERED: CALCIUM GLUCONATE 1000 MG in DEXTROSE 5% WATER 100 ML IV SCH (12:00)
[2020-02-26] MEDS: ACETAMINOPHEN 325MG TABLET PO PRN (18:36)
[2020-02-27] VITALS (74 sets, daily range): BP systolic 87–170; BP diastolic 39–90
[2020-02-27] MEDS ORDERED: PROPOFOL 10MG/ML 100ML 100 ML IV PRN (01:15)
[2020-02-27] MEDS: ACETAMINOPHEN 325MG TABLET PO PRN (02:41)
[2020-02-27] MEDS: DEXT 5%/0.9% NACL KCL 20MEQ/L 1,000 ML IV SCH ×2 (04:30→16:00)
[2020-02-27] MEDS: NOREPINEPHRINE 16 MG in DEXT 5% WATER 234 ML IV PRN (06:24)
[2020-02-27] MEDS: AZITHROMYCIN 500 MG in DEXT 5% WATER 250 ML IV SCH (06:26)
[2020-02-27] MEDS: SPIRONOLACTONE 25MG TABLET PO SCH ×2 (08:21→22:27)
[2020-02-27] MEDS: PANTOPRAZOLE SODIUM 40 MG/VIAL IV SCH ×2 (08:21→22:26)
[2020-02-27] MEDS: APIXABAN 2.5 MG TABLET PO SCH ×2 (08:21→22:27)
[2020-02-27] MEDS: ZINC SULFATE 220 MG ( 50 ) CAPSULE PO SCH (08:22)
[2020-02-27] MEDS: ASCORBIC ACID 500 MG TABLET PO SCH ×2 (08:22→22:28)
[2020-02-27] MEDS: CEFTRIAXONE 1 G PREMIX 50 ML IV SCH (08:22)
[2020-02-27 09:21] LABS: BG BASE EXCESS -2.2 mmol/L (-2.0-2.0); BG CARBOXYHEMOGLOBIN 0.2 % (0.5-1.5); BG DEOXYHEMOGLOBIN 2.9 % (0.0-5.0); BG FRACTION INSPIRED OXYGEN 90; BG HCO3 ACT 21.9 mmol/L (22.0-26.0); BG METHEMOGLOBIN 0.3 % (0.0-1.5); BG OXYGEN SATURATION 97.1 % (92.0-98.5); BG OXYHEMOGLOBIN 96.6 % (94.0-97.0); BG PCO2 35.3 mmHg (35.0-45.0); BG PO2 91.6 mmHg (75.0-100.0); BG SAMPLE SITE RIGHT RADIAL; BG TIDAL VOLUME(mL) 550 mL; BG TOTAL HEMOGLOBIN 11.9 g/dL (12.0-18.0); BG VENT MODE VENT - A/C; BG VENT RATE 18 set
[2020-02-27 09:40] LABS: HEMATOCRIT. 34.7 % (42.0-52.0); HEMOGLOBIN. 11.6 g/dL (14.0-18.0); MEAN CORPUSCULAR HEMOGLOBIN 29.6 pg (28.0-32.0); MEAN CORPUSCULAR VOLUME 88.7 fL (80.0-94.0); MEAN PLATELET VOLUME 10.4 fl (7.4-10.4); PLATELET 155 x1000/uL (130-400); RED BLOOD CELL COUNT 3.91 mill/uL (4.7-6.1)
[2020-02-27 09:51] LABS: CHLORIDE 106 mEq/L (98-107)
[2020-02-27] MEDS: CEFEPIME 1,000 MG in DEXTROSE 5% WATER 50 ML IV SCH ×2 (10:32→22:28)
[2020-02-27] MEDS: METRONIDAZOLE 500 MG PREMIX 100 ML IV SCH ×2 (11:11→22:26)
[2020-02-27 11:30] LABS: PLATELET ESTIMATE NORMAL
[2020-02-27] MEDS: IPRATROPIUM/ALBUTEROL 0.5-3(2.5)MG/3ML NEB HHN SCH ×4 (12:14→23:33)
[2020-02-27] MEDS ORDERED: SODIUM CHLORIDE 10% FOR INH 15ML VIAL NEB INH SCH (16:30)
[2020-02-27] MEDS: ZOLPIDEM TARTRATE 5MG TABLET PO PRN (22:29)
[2020-02-27] MEDS: ONDANSETRON HCL 4MG/2ML INJ IV PRN (22:29)
[2020-02-27] MEDS: TRAMADOL 50MG TABLET PO PRN (22:30)
[2020-02-28] VITALS (79 sets, daily range): BP systolic 109–168; BP diastolic 50–82
[2020-02-28] MEDS: ACETYLCYSTEINE 100MG/ML 10% VIAL 4ML INH SCH ×2 (01:00→16:17)
[2020-02-28] MEDS: DEXT 5%/0.9% NACL KCL 20MEQ/L 1,000 ML IV SCH ×3 (03:22→20:17)
[2020-02-28] MEDS: AZITHROMYCIN 500 MG in DEXT 5% WATER 250 ML IV SCH (03:23)
[2020-02-28] MEDS: METRONIDAZOLE 500 MG PREMIX 100 ML IV SCH ×3 (03:23→19:54)
[2020-02-28] MEDS: IPRATROPIUM/ALBUTEROL 0.5-3(2.5)MG/3ML NEB HHN SCH ×4 (03:34→16:17)
[2020-02-28 05:54] LABS: HEMATOCRIT. 32.5 % (42.0-52.0); HEMOGLOBIN. 10.7 g/dL (14.0-18.0); MEAN CORPUSCULAR HEMOGLOBIN 29.2 pg (28.0-32.0); MEAN CORPUSCULAR VOLUME 88.5 fL (80.0-94.0); MEAN PLATELET VOLUME 10.2 fl (7.4-10.4); PLATELET 149 x1000/uL (130-400); RED BLOOD CELL COUNT 3.67 mill/uL (4.7-6.1)
[2020-02-28 06:02] LABS: CHLORIDE 112 mEq/L (98-107)
[2020-02-28] MEDS: ONDANSETRON HCL 4MG/2ML INJ IV PRN ×2 (07:10→20:19)
[2020-02-28] MEDS: GUAIFENESIN 200MG/10ML SUGAR FREE UDC PO PRN (07:11)
[2020-02-28] MEDS: TRAMADOL 50MG TABLET PO PRN (07:13)
[2020-02-28 07:35] LABS: BG BASE EXCESS 0.2 mmol/L (-2.0-2.0); BG CARBOXYHEMOGLOBIN 0.6 % (0.5-1.5); BG DEOXYHEMOGLOBIN 3.5 % (0.0-5.0); BG FRACTION INSPIRED OXYGEN 80; BG HCO3 ACT 24.7 mmol/L (22.0-26.0); BG METHEMOGLOBIN 0.2 % (0.0-1.5); BG OXYGEN SATURATION 96.5 % (92.0-98.5); BG OXYHEMOGLOBIN 95.7 % (94.0-97.0); BG PCO2 39.5 mmHg (35.0-45.0); BG PH 7.414 (7.350-7.450); BG PO2 81.2 mmHg (75.0-100.0); BG SAMPLE SITE RIGHT RADIAL; BG TIDAL VOLUME(mL) 550 mL; BG TOTAL HEMOGLOBIN 11.5 g/dL (12.0-18.0); BG VENT MODE VENT - A/C; BG VENT RATE 18 set
[2020-02-28] MEDS: CLONIDINE 0.1MG TABLET PO PRN (08:39)
[2020-02-28] MEDS: SPIRONOLACTONE 25MG TABLET PO SCH ×2 (08:39→20:17)
[2020-02-28] MEDS: ASCORBIC ACID 500 MG TABLET PO SCH ×2 (08:39→20:19)
[2020-02-28] MEDS: APIXABAN 2.5 MG TABLET PO SCH ×2 (08:39→20:20)
[2020-02-28] MEDS: ZINC SULFATE 220 MG ( 50 ) CAPSULE PO SCH (08:39)
[2020-02-28] MEDS: DOCUSATE SODIUM 100MG CAPSULE PO PRN (08:39)
[2020-02-28] MEDS: PANTOPRAZOLE SODIUM 40 MG/VIAL IV SCH ×2 (08:40→20:16)
[2020-02-28] MEDS: FENTANYL CITRATE/PF 1,000 MCG in SODIUM CHLORIDE 0.9% 80 ML IV PRN ×2 (08:41→15:24)
[2020-02-28 11:06] LABS: PLATELET ESTIMATE NORMAL
[2020-02-28] MEDS: CEFEPIME 1,000 MG in DEXTROSE 5% WATER 50 ML IV SCH ×2 (12:05→22:01)
[2020-02-28] MEDS: AMLODIPINE 5MG TABLET PO SCH (15:23)
[2020-02-28] MEDS: ACETAMINOPHEN 325MG TABLET PO PRN (20:15)
[2020-02-29] VITALS (94 sets, daily range): BP systolic 106–154; BP diastolic 53–96
[2020-02-29] MEDS: IPRATROPIUM/ALBUTEROL 0.5-3(2.5)MG/3ML NEB HHN SCH ×4 (01:00→20:04)
[2020-02-29] MEDS: DEXT 5%/0.45% NACL 1000ML 1,000 ML IV SCH ×2 (01:30→11:20)
[2020-02-29] MEDS: METRONIDAZOLE 500 MG PREMIX 100 ML IV SCH ×3 (02:55→20:38)
[2020-02-29] MEDS: FENTANYL CITRATE/PF 1,000 MCG in SODIUM CHLORIDE 0.9% 80 ML IV PRN ×2 (03:51→14:17)
[2020-02-29 05:55] LABS: CHLORIDE 116 mEq/L (98-107); HEMATOCRIT. 33.5 % (42.0-52.0); HEMOGLOBIN. 10.7 g/dL (14.0-18.0); MEAN CORPUSCULAR HEMOGLOBIN 28.8 pg (28.0-32.0); MEAN CORPUSCULAR VOLUME 90.1 fL (80.0-94.0); MEAN PLATELET VOLUME 10.4 fl (7.4-10.4); PLATELET 182 x1000/uL (130-400); RED BLOOD CELL COUNT 3.72 mill/uL (4.7-6.1); RED CELL DISTRIBUTION WIDTH 14.6 % (11.6-14.6)
[2020-02-29] MEDS: DOCUSATE SODIUM 100MG CAPSULE PO PRN (09:23)
[2020-02-29] MEDS: SPIRONOLACTONE 25MG TABLET PO SCH ×2 (09:23→20:37)
[2020-02-29] MEDS: APIXABAN 2.5 MG TABLET PO SCH (09:23)
[2020-02-29] MEDS: PANTOPRAZOLE SODIUM 40 MG/VIAL IV SCH ×2 (09:23→20:38)
[2020-02-29] MEDS: ACETAMINOPHEN 325MG TABLET PO PRN (09:23)
[2020-02-29] MEDS: ASCORBIC ACID 500 MG TABLET PO SCH ×2 (09:23→20:38)
[2020-02-29] MEDS: ZINC SULFATE 220 MG ( 50 ) CAPSULE PO SCH (09:23)
[2020-02-29] MEDS: AMLODIPINE 5MG TABLET PO SCH (09:24)
[2020-02-29] MEDS: DEXT 5%/0.9% NACL KCL 20MEQ/L 1,000 ML IV SCH (09:28)
[2020-02-29 09:34] LABS: PLATELET ESTIMATE NORMAL
[2020-02-29 09:51] LABS: BG BASE EXCESS -4.7 mmol/L (-2.0-2.0); BG CARBOXYHEMOGLOBIN 0.2 % (0.5-1.5); BG DEOXYHEMOGLOBIN 5.1 % (0.0-5.0); BG FRACTION INSPIRED OXYGEN 80; BG HCO3 ACT 21.5 mmol/L (22.0-26.0); BG METHEMOGLOBIN 0.3 % (0.0-1.5); BG OXYGEN SATURATION 94.9 % (92.0-98.5); BG OXYHEMOGLOBIN 94.4 % (94.0-97.0); BG PCO2 44.1 mmHg (35.0-45.0); BG PH 7.306 (7.350-7.450); BG SAMPLE SITE RIGHT RADIAL; BG TIDAL VOLUME(mL) 550 mL; BG TOTAL HEMOGLOBIN 11.3 g/dL (12.0-18.0); BG VENT MODE VENT - A/C; BG VENT RATE 18 set
[2020-02-29] MEDS: CEFEPIME 1,000 MG in DEXTROSE 5% WATER 50 ML IV SCH ×2 (11:21→22:20)
[2020-02-29] MEDS: MIDAZOLAM HCL 100 MG in DEXT 5% WATER 80 ML IV PRN (14:18)
[2020-02-29 15:13] LABS: CLARITY URINE CLOUDY (CLEAR); COLOR URINE ORANGE (YELLOW); KETONES URINE NEGATIVE (NEGATIVE); LEUKOCYTE ESTERASE URINE 1+ (NEGATIVE); NITRITE URINE POSITIVE (NEGATIVE); OCCULT BLOOD URINE 3+ (NEGATIVE); PROTEIN URINE 2+ (NEGATIVE); SPECIFIC GRAVITY URINE 1.022 (1.005-1.030); UROBILINOGEN URINE 0.2 E.U./dL (0.2-1.0)
[2020-02-29] MEDS: ACETYLCYSTEINE 100MG/ML 10% VIAL 4ML INH SCH (15:55)
[2020-02-29] MEDS: APIXABAN 5 MG TABLET PO SCH (16:48)
[2020-02-29] MEDS: DOCUSATE SODIUM 100MG CAPSULE PO SCH (16:48)
[2020-03-01] VITALS (95 sets, daily range): BP systolic 76–137; BP diastolic 46–91
[2020-03-01] MEDS: ACETYLCYSTEINE 100MG/ML 10% VIAL 4ML INH SCH ×3 (00:09→15:58)
[2020-03-01] MEDS: IPRATROPIUM/ALBUTEROL 0.5-3(2.5)MG/3ML NEB HHN SCH ×6 (00:10→21:09)
[2020-03-01] MEDS: METRONIDAZOLE 500 MG PREMIX 100 ML IV SCH ×3 (03:16→20:11)
[2020-03-01] MEDS: FENTANYL CITRATE/PF 1,000 MCG in SODIUM CHLORIDE 0.9% 80 ML IV PRN ×2 (04:04→17:12)
[2020-03-01 05:30] LABS: BASOPHILS % 0.3 % (0.0-2.0); EOSINOPHILS % 0.3 % (0.0-5.0); HEMATOCRIT. 23.7 % (42.0-52.0); HEMOGLOBIN. 7.6 g/dL (14.0-18.0); LYMPHOCYTES % 10.1 % (20.0-50.0); MEAN CORPUSCULAR HEMOGLOBIN 29.3 pg (28.0-32.0); MEAN CORPUSCULAR VOLUME 90.9 fL (80.0-94.0); MEAN PLATELET VOLUME 9.9 fl (7.4-10.4); MONOCYTES % 3.1 % (2.0-8.0); NEUTROPHILS % 86.2 % (40.0-76.0); PLATELET 77 x1000/uL (130-400); RED BLOOD CELL COUNT 2.61 mill/uL (4.7-6.1)
[2020-03-01 05:34] LABS: CHLORIDE 120 mEq/L (98-107)
[2020-03-01 09:57] LABS: BG BASE EXCESS -7.3 mmol/L (-2.0-2.0); BG CARBOXYHEMOGLOBIN 0.7 % (0.5-1.5); BG DEOXYHEMOGLOBIN 9.8 % (0.0-5.0); BG FRACTION INSPIRED OXYGEN 80; BG HCO3 ACT 19.5 mmol/L (22.0-26.0); BG METHEMOGLOBIN 0.2 % (0.0-1.5); BG OXYGEN SATURATION 90.1 % (92.0-98.5); BG OXYHEMOGLOBIN 89.3 % (94.0-97.0); BG PCO2 44.6 mmHg (35.0-45.0); BG PH 7.258 (7.350-7.450); BG PO2 58.6 mmHg (75.0-100.0); BG SAMPLE SITE RIGHT RADIAL; BG TIDAL VOLUME(mL) 550 mL; BG TOTAL HEMOGLOBIN 10.7 g/dL (12.0-18.0); BG VENT MODE VENT - A/C; BG VENT RATE 18 set
[2020-03-01] MEDS: PANTOPRAZOLE SODIUM 40 MG/VIAL IV SCH ×2 (09:58→20:13)
[2020-03-01] MEDS: ASCORBIC ACID 500 MG TABLET PO SCH ×2 (09:59→20:13)
[2020-03-01] MEDS: SPIRONOLACTONE 25MG TABLET PO SCH ×2 (09:59→20:14)
[2020-03-01] MEDS: DOCUSATE SODIUM 100MG CAPSULE PO SCH (09:59)
[2020-03-01] MEDS: ZINC SULFATE 220 MG ( 50 ) CAPSULE PO SCH (09:59)
[2020-03-01] MEDS: AMLODIPINE 5MG TABLET PO SCH (09:59)
[2020-03-01] MEDS: APIXABAN 5 MG TABLET PO SCH (09:59)
[2020-03-01] MEDS ORDERED: ACETAMINOPHEN 650MG/20.3ML UDC PO PRN (10:00)
[2020-03-01] MEDS: MIDAZOLAM HCL 100 MG in DEXT 5% WATER 80 ML IV PRN (10:05)
[2020-03-01] MEDS: ACETAMINOPHEN 650MG/20.3ML UDC PO PRN ×3 (10:13→18:05)
[2020-03-01] MEDS: CEFEPIME 1,000 MG in DEXTROSE 5% WATER 50 ML IV SCH ×2 (11:59→12:02)
[2020-03-01] MEDS: DEXT 5%/0.45% NACL 1000ML 1,000 ML IV SCH ×2 (12:32→17:00)
[2020-03-01] MEDS ORDERED: NA PHOS,M-B/NA PHOS,DI-BA ENEMA 118ML PR PRN (19:30)
[2020-03-02] VITALS (95 sets, daily range): BP systolic 78–127; BP diastolic 43–88
[2020-03-02] MEDS: DEXT 5%/0.45% NACL 1000ML 1,000 ML IV SCH (00:18)
[2020-03-02] MEDS: IPRATROPIUM/ALBUTEROL 0.5-3(2.5)MG/3ML NEB HHN SCH ×5 (00:24→16:51)
[2020-03-02] MEDS: ACETYLCYSTEINE 100MG/ML 10% VIAL 4ML INH SCH ×2 (00:25→08:40)
[2020-03-02 01:22] LABS: BG BASE EXCESS -13.3 mmol/L (-2.0-2.0); BG CARBOXYHEMOGLOBIN 0.4 % (0.5-1.5); BG DEOXYHEMOGLOBIN 33.7 % (0.0-5.0); BG FRACTION INSPIRED OXYGEN 100; BG HCO3 ACT 17.6 mmol/L (22.0-26.0); BG METHEMOGLOBIN 0.1 % (0.0-1.5); BG OXYGEN SATURATION 66.1 % (92.0-98.5); BG OXYHEMOGLOBIN 65.8 % (94.0-97.0); BG PCO2 67.6 mmHg (35.0-45.0); BG PH 7.033 (7.350-7.450); BG PO2 36.3 mmHg (75.0-100.0); BG SAMPLE SITE RIGHT RADIAL; BG TIDAL VOLUME(mL) 550 mL; BG TOTAL HEMOGLOBIN 10.7 g/dL (12.0-18.0); BG VENT MODE VENT - A/C; BG VENT RATE 22 set
[2020-03-02] MEDS ORDERED: SODIUM BICARBONATE 8.4% 1 MEQ/ML 50ML SYR IV NR (01:47)
[2020-03-02] MEDS: METRONIDAZOLE 500 MG PREMIX 100 ML IV SCH ×3 (03:50→20:34)
[2020-03-02] MEDS: PHENYLEPHRINE 40 MG in DEXT 5% WATER 246 ML IV PRN ×4 (04:51→22:27)
[2020-03-02 08:14] LABS: BG CARBOXYHEMOGLOBIN 0.3 % (0.5-1.5); BG FRACTION INSPIRED OXYGEN 100; BG HCO3 ACT 11.3 mmol/L (22.0-26.0); BG METHEMOGLOBIN 0.3 % (0.0-1.5); BG OXYGEN SATURATION 86.9 % (92.0-98.5); BG OXYHEMOGLOBIN 86.4 % (94.0-97.0); BG PCO2 51.5 mmHg (35.0-45.0); BG SAMPLE SITE RIGHT RADIAL; BG TIDAL VOLUME(mL) 550 mL; BG TOTAL HEMOGLOBIN 10.4 g/dL (12.0-18.0); BG VENT MODE VENT - A/C; BG VENT RATE 26 set
[2020-03-02] MEDS ORDERED: SODIUM BICARBONATE 8.4% 1 MEQ/ML 50ML SYR IV ONE ×3 (08:30→18:48)
[2020-03-02] MEDS: PANTOPRAZOLE SODIUM 40 MG/VIAL IV SCH ×2 (08:31→20:45)
[2020-03-02] MEDS: AMLODIPINE 5MG TABLET PO SCH (08:32)
[2020-03-02] MEDS: SPIRONOLACTONE 25MG TABLET PO SCH ×2 (08:32→20:45)
[2020-03-02] MEDS: ASCORBIC ACID 500 MG TABLET PO SCH ×2 (08:32→20:45)
[2020-03-02] MEDS: ZINC SULFATE 220 MG ( 50 ) CAPSULE PO SCH (08:32)
[2020-03-02] MEDS ORDERED: DOCUSATE SODIUM SUGAR FREE 100MG/10ML UDC NG SCH (09:00)
[2020-03-02] MEDS: SODIUM BICARBONATE 150 MEQ in DEXTROSE 5% WATER 1,000 ML IV SCH (09:05)
[2020-03-02] MEDS: CEFEPIME 1,000 MG in DEXTROSE 5% WATER 50 ML IV SCH (11:50)
[2020-03-02] MEDS: METOCLOPRAMIDE HCL 10MG/2ML VIAL IV SCH ×2 (13:00→17:48)
[2020-03-02 15:39] LABS: CHLORIDE 112 mEq/L (98-107)
[2020-03-02 15:56] LABS: HEMATOCRIT. 39.8 % (42.0-52.0); HEMOGLOBIN. 10.6 g/dL (14.0-18.0); MEAN CORPUSCULAR HEMOGLOBIN 28.5 pg (28.0-32.0); MEAN CORPUSCULAR VOLUME 107.6 fL (80.0-94.0); MEAN PLATELET VOLUME 10.8 fl (7.4-10.4); PLATELET 169 x1000/uL (130-400); RED CELL DISTRIBUTION WIDTH 17.4 % (11.6-14.6)
[2020-03-02] MEDS ORDERED: INSULIN REGULAR (HUMULIN R) 300UNITS/3ML IV NR (17:00)
[2020-03-02] MEDS ORDERED: SODIUM BICARBONATE 8.4% MEQ/ML 50ML VIAL IV NR (17:00)
[2020-03-02] MEDS ORDERED: DEXTROSE 50% WATER 50ML SYRINGE IV NR ×2 (17:00)
[2020-03-02] MEDS ORDERED: IPRATROPIUM/ALBUTEROL 0.5-3(2.5)MG/3ML NEB HHN PRN (17:05)
[2020-03-02] MEDS ORDERED: ALBUMIN HUMAN 25GM/100ML (25%) IV SCH (18:00)
[2020-03-02] MEDS ORDERED: CALCIUM CHLORIDE 1,000 MG in DEXT 5% WATER 90 ML IV NR (18:00)
[2020-03-02] MEDS ORDERED: VANCOMYCIN 2,000 MG in DEXT 5% WATER 500 ML IV SCH (18:30)
[2020-03-02] MEDS ORDERED: SODIUM BICARBONATE 8.4% 1 MEQ/ML 50ML SYR IV SCH (21:00)
[2020-03-02] MEDS ORDERED: MEROPENEM 1,000 MG in SODIUM CHLORIDE 0.9% 100 ML IV SCH (21:00)
[2020-03-02 21:03] LABS: NUCLEATED RED BLOOD CELLS 2 /100 WBC; PLATELET ESTIMATE NORMAL
[2020-03-02] MEDS: NOREPINEPHRINE 16 MG in DEXT 5% WATER 234 ML IV PRN (22:18)
[2020-03-02] MEDS ORDERED: SODIUM BICARBONATE 8.4% MEQ/ML 50ML VIAL IV SCH (23:00)
[2020-03-03] VITALS (24 sets, daily range): BP systolic 89–133; BP diastolic 37–70
[2020-03-03] MEDS: METOCLOPRAMIDE HCL 10MG/2ML VIAL IV SCH ×2 (00:01→05:12)
[2020-03-03] MEDS: ACETYLCYSTEINE 100MG/ML 10% VIAL 4ML INH SCH (00:29)
[2020-03-03] MEDS: IPRATROPIUM/ALBUTEROL 0.5-3(2.5)MG/3ML NEB HHN SCH ×2 (00:30→04:31)
[2020-03-03] MEDS ORDERED: PHENYLEPHRINE 80 MG in DEXT 5% WATER 492 ML IV PRN (01:15)
[2020-03-03] MEDS: METRONIDAZOLE 500 MG PREMIX 100 ML IV SCH (03:51)
[2020-03-03] MEDS: SODIUM BICARBONATE 150 MEQ in DEXTROSE 5% WATER 1,000 ML IV SCH (03:51)
[2020-03-03] MEDS ORDERED: SODIUM BICARBONATE 8.4% MEQ/ML 50ML VIAL IV ONE (06:10)
[2020-03-03] MEDS ORDERED: CALCIUM CHLORIDE 1GM/10ML SYR IV ONE (06:10)
[2020-03-03] MEDS ORDERED: EPINEPHRINE 0.1MG/ML (1:10,000) 10ML SYR ONE (06:10)
[2020-03-03] MEDS ORDERED: DOPAMINE 800MG PREMIX (DOUBLE) 250 ML IV ONE (06:24)
== END 2020-03-03 06:35 | disposition expired | DRG 870 ==
LOC: ER 01:26 → ENRESERV 10:25 → MICUSO 10:28 → EDBEDREQSVC 10:31 → ENRESERV 15:02 → MICUNO 02-25 17:14
PROVIDERS: ADMIT Internal Medicine; ATTEND Internal Medicine
PROC: 5A1955Z Respiratory Ventilation, Greater than 96 Consecutive Hours (ICD-10-PCS; principal; 2020-02-24)
PROC: 0BH17EZ Insertion of Endotracheal Airway into Trachea, Via Natural or Artificial Opening (ICD-10-PCS; 2020-02-24)
PROC: 05H533Z Insertion of Infusion Device into Right Subclavian Vein, Percutaneous Approach (ICD-10-PCS; 2020-02-24)
PROC: B546ZZA Ultrasonography of Right Subclavian Vein, Guidance (ICD-10-PCS; 2020-02-24)
PROC: 0D9670Z Drainage of Stomach with Drainage Device, Via Natural or Artificial Opening (ICD-10-PCS; 2020-02-24)
PROC: 5A12012 Performance of Cardiac Output, Single, Manual (ICD-10-PCS; 2020-03-03)
DX: A41.9 Sepsis, unspecified organism (principal); J96.01 Acute respiratory failure with hypoxia; G92 Toxic encephalopathy; I50.43 Acute on chronic combined systolic (congestive) and diastolic (congestive) heart failure; J18.9 Pneumonia, unspecified organism; N17.0 Acute kidney failure with tubular necrosis; M62.82 Rhabdomyolysis; E87.1 Hypo-osmolality and hyponatremia; I48.20 Chronic atrial fibrillation, unspecified; K56.609 Unspecified intestinal obstruction, unspecified as to partial versus complete obstruction; E44.1 Mild protein-calorie malnutrition; I13.0 Hypertensive heart and chronic kidney disease with heart failure and stage 1 through stage 4 chronic kidney disease, or unspecified chronic kidney disease; D62 Acute posthemorrhagic anemia; E87.2 Acidosis; R57.9 Shock, unspecified; E87.6 Hypokalemia; N18.9 Chronic kidney disease, unspecified; G47.33 Obstructive sleep apnea (adult) (pediatric); I25.10 Atherosclerotic heart disease of native coronary artery without angina pectoris; E78.5 Hyperlipidemia, unspecified; N40.0 Benign prostatic hyperplasia without lower urinary tract symptoms; D50.9 Iron deficiency anemia, unspecified; Z20.828 Contact with and (suspected) exposure to other viral communicable diseases; K21.9 Gastro-esophageal reflux disease without esophagitis; R33.9 Retention of urine, unspecified; D72.810 Lymphocytopenia; E83.51 Hypocalcemia; K76.89 Other specified diseases of liver; E66.09 Other obesity due to excess calories; E87.5 Hyperkalemia; I27.21 Secondary pulmonary arterial hypertension; R73.9 Hyperglycemia, unspecified; I27.81 Cor pulmonale (chronic); K80.20 Calculus of gallbladder without cholecystitis without obstruction; G83.21 Monoplegia of upper limb affecting right dominant side; Z86.73 Personal history of transient ischemic attack (TIA), and cerebral infarction without residual deficits; Z95.5 Presence of coronary angioplasty implant and graft; Z78.1 Physical restraint status; Z87.891 Personal history of nicotine dependence; Z68.36 Body mass index [BMI] 36.0-36.9, adult; I25.2 Old myocardial infarction; Z79.01 Long term (current) use of anticoagulants; K29.70 Gastritis, unspecified, without bleeding
CPT/HCPCS: 31500; 36415; 36600; 71045; 71250; 74018; 76700; 76705; 76937; 78580; 80048; 80053; 80076; 81003; 82247; 82248; 82375; 82550; 82553; 82607; 82746; 82805; 82962; 83540; 83550; 83735; 83880; 84100; 84132; 84145; 84439; 84443; 84450; 84460; 84478; 84484; 85025; 85379; 86705; 86709; 86803; 87070; 87340; 93005; 93306; 93970; 94002; 94003; 94640; 99291; C1725; C1769; C9113; J0456; J0610; J0692; J0696; J1100; J1265; J1815; J1940; J2185; J2250; J2370; J2405; J2704; J2765; J3010; J3370; J3475; J3480; J3490; J7030; J7050; J7060; J7070; J7131; J7608; P9047; U0003-CS